=== PATIENT | female | born 1950 | race Caucasian/White ===

== ENCOUNTER 2021-03-30 12:28 | Inpatient (IN) | payer BC, OTHER ==
[~2021-03-30] VITALS: Ht 175.3 cm; Wt 56.9 kg
[~2021-03-30 12:28] MED LIST: AMLO-489 PO; AZIT250T8 PO; DOXY150C2 PO; GABA300C10 PO; HYDR-3682 PO; LEVO112T4 PO; LEVO50TA7 PO; LISI30TA4 PO; LORA0.5T20 PO; NOR10T PO; OMEP20CA74 OR; SIMV10TA84 PO; TEMA15CA2 PO; TRAM-297 PO; TRIA0.02 TOP; VENL75CA3 PO; [UNRECOGNIZED DRUG - CODE] EX; [UNRECOGNIZED DRUG - CODE] SL
[2021-03-30] MEDS ORDERED: SODIUM CHLORIDE 0.9% 500 ML IVB ONE (13:00)
[2021-03-30 13:44] LABS: Basophils # (auto) 0 10 ^3/uL (0-0.2); Basophils % (auto) 0.5 % (0.0-2.0); Eosinophils # (auto) 0 10 ^3/uL (0-0.8); Eosinophils % (auto) 0.4 % (0.0-7.0); Lymphocytes # (auto) 1.1 10 ^3/uL (0.4-5.4); Lymphocytes % (auto) 17.9 % (10.0-50.0); Mean Corpuscular Hemoglobin 31.2 pg (28.0-32.0); Mean Corpuscular Hgb Conc. 33.3 g/dL (32.0-36.0); Mean Corpuscular Volume 93.4 fL (80.0-100.0); Monocytes # (auto) 0.7 10 ^3/uL (0-1.3); Monocytes % (auto) 11.5 % (0.0-12.0); Neutrophils # (auto) 4.1 10 ^3/uL (1.6-8.6); Neutrophils % (auto) 69.7 % (37.0-80.0); Nucleated Red Blood Cells % 0.1 %; Red Cell Distribution Width 13.1 % (11.8-14.3); White Blood Cell 5.9 10^3/uL (4.4-10.8)
[2021-03-30 13:59] LABS: Albumin 3.3 g/dL (3.4-5.0); Calcium 8.9 mg/dL (8.5-10.1); Potassium 3.6 mmol/L (3.5-5.1)
[2021-03-30 14:02] LABS: Bilirubin, Total 0.6 mg/dL (0.2-1.0); Total Protein 7.6 g/dL (6.4-8.2)
[2021-03-30 16:53] LABS: Urine Bacteria NONE SEEN /hpf (None Seen); Urine Blood 1+ /uL (Negative); Urine Specific Gravity 1.003 (1.001-1.035); Urine WBC <1 /hpf (0 - 5)
[2021-03-30] MEDS ORDERED: MORPHINE SULFATE INJECTION 2 MG/ML SYRG IV PRN (18:15)
[2021-03-30] MEDS ORDERED: DOCUSATE SOD 100 MG CAP PO PRN (18:15)
[2021-03-30] MEDS ORDERED: ONDANSETRON HCL 4 MG/2 ML VIAL IV PRN (18:15)
[2021-03-30] MEDS ORDERED: NITROGLYCERIN 0.4 MG SL TAB SL PRN (18:15)
[2021-03-30] MEDS ORDERED: SODIUM CHLORIDE 0.9% 1,000 ML IV ONE (18:15)
[2021-03-30] MEDS ORDERED: ACETAMINOPHEN 500 MG TAB PO PRN (18:15)
[2021-03-30 18:52] LABS: Amphetamine Screen, Urine NEGATIVE (NEGATIVE); Barbiturate Scree,Urine NEGATIVE (NEGATIVE); Benzodiazephine Screen, Urine NEGATIVE (NEGATIVE); Cannabinoid Screen, Urine NEGATIVE (NEGATIVE); Cocaine Screen, Urine NEGATIVE (NEGATIVE); Opiate Scree,Urine NEGATIVE (NEGATIVE); Phencyclidine Screen, Urine NEGATIVE (NEGATIVE)
[2021-03-30 19:12] LABS: Alcohol, Urine < 3.0 mg/dL (0-10)
[2021-03-30] MEDS: HYDROcodone-ACET 5/325MG TAB PO PRN (20:54)
[2021-03-30 22:00] VITALS: BP 150/89
[2021-03-30 23:45] VITALS: BP 150/89
[2021-03-31] MEDS ORDERED: INFLUENZA QUAD 2020-2021 0.5 ML SYRG IM ONE (02:45)
[2021-03-31] MEDS ORDERED: PNEUMOCOCCAL VACC POLYS 25 MCG/0.5 ML VIAL IM ONE (02:45)
[2021-03-31 04:55] VITALS: BP 137/72
[2021-03-31 09:00] VITALS: BP 119/62
[2021-03-31] MEDS: HYDROcodone-ACET 5/325MG TAB PO PRN ×2 (09:28→23:03)
[2021-03-31] MEDS: ASPirin 81 mg TAB PO SCH (11:00)
[2021-03-31] MEDS ORDERED: OXYC-904 PO (12:04)
[2021-03-31] MEDS ORDERED: LISI20TA28 PO (12:04)
[2021-03-31 12:06] LABS: Cholesterol 134 mg/dL (< 200); HDL Cholesterol 63 mg/dL (40-59); LDL Cholesterol 60 mg/dL (< 100); Triglycerides 94 mg/dL (< 150)
[2021-03-31 13:00] VITALS: BP 137/78
[2021-03-31 17:00] VITALS: BP 127/90
[2021-03-31] MEDS: VENLAFAXINE HCL 37.5MG TABLET PO SCH (20:53)
[2021-03-31 22:00] VITALS: BP 89/60
[2021-03-31] MEDS ORDERED: ATORVASTATIN 20 MG TAB PO SCH (22:00)
[2021-03-31 23:00] VITALS: BP 111/59
[2021-04-01 05:00] VITALS: BP 99/48
[2021-04-01] MEDS: VENLAFAXINE HCL 37.5MG TABLET PO SCH ×2 (06:23→15:01)
[2021-04-01] MEDS ORDERED: LEVOTHYROXINE SODIUM 112 MCG TAB PO SCH (07:00)
[2021-04-01 08:41] VITALS: BP 95/64
[2021-04-01] MEDS ORDERED: PANTOPRAZOLE 40 MG TAB PO SCH (10:00)
[2021-04-01] MEDS: ASPirin 81 mg TAB PO SCH (10:08)
[2021-04-01] MEDS ORDERED: VENL75CA3 PO (12:49)
[2021-04-01] MEDS ORDERED: PANT40TA2 PO (12:49)
[2021-04-01] MEDS ORDERED: LEVO112T4 PO (12:49)
[2021-04-01] MEDS ORDERED: SIMV10TA84 PO (12:49)
[2021-04-01 14:00] VITALS: BP 98/63
[2021-04-01 16:37] VITALS: BP 98/63
== END 2021-04-01 17:00 | disposition home or self-care (01) | DRG 645 ==
LOC: ER 12:28 → EDBD 12:28 → OVERFLOW 19:03 → WEST WING 21:29
PROVIDERS: ADMIT Nurse Practitioner Acute Care; ATTEND Internal Medicine
DX: E03.9 Hypothyroidism, unspecified (principal); G31.84 Mild cognitive impairment of uncertain or unknown etiology; K80.20 Calculus of gallbladder without cholecystitis without obstruction; K57.30 Diverticulosis of large intestine without perforation or abscess without bleeding; K74.60 Unspecified cirrhosis of liver; I70.0 Atherosclerosis of aorta; B19.20 Unspecified viral hepatitis C without hepatic coma; F41.9 Anxiety disorder, unspecified; I10 Essential (primary) hypertension; E78.5 Hyperlipidemia, unspecified; F17.200 Nicotine dependence, unspecified, uncomplicated; G89.4 Chronic pain syndrome; Z20.822 Contact with and (suspected) exposure to COVID-19; K76.9 Liver disease, unspecified; M54.50 Low back pain, unspecified; Z60.2 Problems related to living alone; Z72.89 Other problems related to lifestyle; Z82.49 Family history of ischemic heart disease and other diseases of the circulatory system; Z79.899 Other long term (current) drug therapy; Z82.0 Family history of epilepsy and other diseases of the nervous system; Z82.3 Family history of stroke; Z91.14 Patient's other noncompliance with medication regimen; Z28.21 Immunization not carried out because of patient refusal; Z79.82 Long term (current) use of aspirin; Z90.49 Acquired absence of other specified parts of digestive tract; F32.9 Major depressive disorder, single episode, unspecified
CPT/HCPCS: 36415; 70450; 70551; 71045; 74176; 80053; 80061; 80307; 81001; 82140; 82306; 82728; 83690; 84443; 84484; 85025; 86141; 87426; 93005; 96360; 96361; 97163; G0378

== ENCOUNTER 2021-08-20 15:30 | Emergency (ER) | payer BC ==
[~2021-08-20] VITALS: Ht 175.3 cm; Wt 61.2 kg
[~2021-08-20 15:30] MED LIST changes: -AMLO-489 PO; -AZIT250T8 PO; -DOXY150C2 PO; -GABA300C10 PO; -HYDR-3682 PO; -LEVO50TA7 PO; -LISI30TA4 PO; -LORA0.5T20 PO; -NOR10T PO; -OMEP20CA74 OR; +OXYC-904 PO; +PANT40TA2 PO; -TEMA15CA2 PO; -TRAM-297 PO; -TRIA0.02 TOP; -[UNRECOGNIZED DRUG - CODE] EX; -[UNRECOGNIZED DRUG - CODE] SL
[2021-08-20] MEDS ORDERED: SODIUM CHLORIDE 0.9% 1,000 ML IV ONE (16:00)
[2021-08-20 16:18] LABS: Basophils # (auto) 0 10 ^3/uL (0-0.2); Basophils % (auto) 0.6 % (0.0-2.0); Eosinophils # (auto) 0 10 ^3/uL (0-0.8); Eosinophils % (auto) 0.6 % (0.0-7.0); Lymphocytes # (auto) 1.2 10 ^3/uL (0.4-5.4); Lymphocytes % (auto) 22.9 % (10.0-50.0); Mean Corpuscular Hemoglobin 31.2 pg (28.0-32.0); Mean Corpuscular Hgb Conc. 34.2 g/dL (32.0-36.0); Mean Corpuscular Volume 91.2 fL (80.0-100.0); Monocytes # (auto) 0.5 10 ^3/uL (0-1.3); Monocytes % (auto) 10.5 % (0.0-12.0); Neutrophils # (auto) 3.3 10 ^3/uL (1.6-8.6); Neutrophils % (auto) 65.4 % (37.0-80.0); Nucleated Red Blood Cells % 0.1 %; Red Blood Cells 4.16 10^6/uL (4.0-5.20); Red Cell Distribution Width 14.5 % (11.8-14.3); White Blood Cell 5.1 10^3/uL (4.4-10.8)
[2021-08-20 16:35] LABS: Albumin 3.2 g/dL (3.4-5.0); Calcium 8.1 mg/dL (8.5-10.1); Magnesium 2.1 mg/dL (1.6-2.6); Potassium 3.5 mmol/L (3.5-5.1)
[2021-08-20 16:39] LABS: BUN/Creatinine Ratio 30.8; Bilirubin, Total 0.4 mg/dL (0.2-1.0); Total Protein 7.4 g/dL (6.4-8.2)
[2021-08-20] MEDS ORDERED: IOHEXOL 300 MG/ML 100ML BOTTLE IJ ONE (16:48)
[2021-08-20 20:47] LABS: Urine Bacteria NONE SEEN /hpf (None Seen); Urine Blood TRACE /uL (Negative); Urine WBC 2 /hpf (0 - 5)
[2021-08-20 20:53] LABS: Urine Specific Gravity > 1.050 (1.001-1.035)
[2021-08-20 21:16] VITALS: BP 88/62
== END 2021-08-20 21:59 | disposition home or self-care (01) ==
LOC: ER 15:30 → EDBD 15:30 → EDUNIT# 15:30 → ER 21:59
DX: R19.7 Diarrhea, unspecified (principal); E86.0 Dehydration; J84.10 Pulmonary fibrosis, unspecified; K74.60 Unspecified cirrhosis of liver; K76.6 Portal hypertension; I10 Essential (primary) hypertension; Z87.891 Personal history of nicotine dependence
CPT/HCPCS: 36415; 71260; 74177; 80053; 81001; 83735; 85025; 96360; 99285; J7030; Q9967; 93005